=== PATIENT | female | born 1990 | race African-American/Black ===

== ENCOUNTER 2018-04-28 13:47 | Emergency (ER) | payer MEDICAID ==
[~2018-04-28] VITALS: Ht 160 cm; Wt 81.8 kg
[~2018-04-28 13:47] MED LIST: HYDROCODONE-APA1 TAB PO; IBUPROFEN600 MG PO; PRENATAL COMPLE1 TAB PO
[2018-04-28 14:23] VITALS: Ht 160 cm; Wt 81.8 kg
[2018-04-28 14:55] LABS: APPEARANCE HAZY (CLEAR); COLOR YELLOW (YELLOW)
[2018-04-28 14:56] LABS: BILIRUBIN NEGATIVE (NEGATIVE); GLUCOSE NEGATIVE (NEGATIVE); KETONE NEGATIVE (NEGATIVE); NITRITE POSITIVE (NEGATIVE); PROTEIN 2+ mg/dL (NEGATIVE); UROBILINOGEN NORMAL (NORMAL)
[2018-04-28 14:58] LABS: BACTERIA MODERATE /hpf (NONE SEEN); WHITE CELLS - URINE 25-50 /hpf (0-5)
[2018-04-28 15:13] LABS: BASOPHILS 0.4 % (0-2); EOSINOPHILS 1.8 % (0-7); HEMATOCRIT 34.7 % (36.0-48.0); HEMOGLOBIN 11.2 g/dL (12-16); IMMATURE GRANULOCYTES 0.3 % (0-5); LYMPHOCYTES 26.3 % (15-50); MCH 23.6 pg (26.0-34.0); MCHC 32.3 g/dL (31.0-37.0); MCV 73.2 fL (80.0-100.0); MEAN PLATELET VOLUME 9.1 fL (7.4-10.4); MONOCYTES 7.5 % (2-11); NEUTROPHILS 63.7 % (40-80); PLATELET COUNT 323 10x3/uL (130-400); RBC 4.74 10x6/uL (4.00-5.40); RDW 16.2 % (11.5-14.5); WBC 7.2 10x3/uL (4.8-10.8)
[2018-04-28 15:31] LABS: ALBUMIN 3.6 g/dL (3.4-5.0); ALKALINE PHOSPHATASE 72 U/L (46-116); ALT (SGPT) 15 U/L (10-68); AMYLASE - SERUM 33 U/L (25-115); BILIRUBIN - TOTAL 0.37 mg/dL (0.2-1.3); CALC OSMOLALITY 273 mosm/kg (275-300); CALCIUM 8.8 mg/dL (8.5-10.1); CARBON DIOXIDE 25.7 mmol/L (21.0-32.0); CHLORIDE - SERUM 104 mmol/L (98-107); CREATININE - SERUM 0.8 mg/dL (0.6-1.3); GLUCOSE 97 mg/dL (74-106); LIPASE 64 U/L (73-393); POTASSIUM - SERUM 3.6 mmol/L (3.5-5.1); PROTEIN - SERUM 7.6 g/dL (6.4-8.2); SODIUM 138 mmol/L (136-145); UREA NITROGEN 7 mg/dL (7-18); eGFR NON AFRICAN AMERICAN > 90 mL/min (90-120)
[2018-04-28] MEDS ORDERED: MACROBID100 MG PO (16:41)
[2018-04-28] MEDS ORDERED: PHENAZOPYRIDIN200 MG PO (16:41)
[2018-04-28 16:59] VITALS: BP 123/69
[2018-04-28 23:40] LABS: HCG SERUM NEGATIVE (NEGATIVE)
== END 2018-04-28 17:00 | disposition home or self-care (01) ==
LOC: D.ER 13:47
PROVIDERS: Family Medicine
DX: N39.0 Urinary tract infection, site not specified (principal)

== ENCOUNTER 2018-05-13 07:07 | Day surgery (SDC) | payer MEDICAID ==
[~2018-05-13] VITALS: Ht 160 cm; Wt 81.8 kg
--- NOTE | ~2018-05-13 | OP ---
PATIENT NAME: DEVIN AGUIRRE MEDICAL RECORD: [id number] :89 LOCATION: D.2229 ADMISSION DATE: SURGEON: JACOB BRIDGES MD DATE OF OPERATION: 05/13/2018 PREOPERATIVE DIAGNOSIS: Thyroid nodule. POSTOPERATIVE DIAGNOSIS: Thyroid nodule. PROCEDURE: Left thyroid lobectomy. SURGEON: Jacob Bridges MD ANESTHESIA: General orotracheal. BLOOD LOSS: 30 cc. SPECIMEN: Left thyroid lobe and nodules. DRAINS: A 15-Italian drain through a stab incision inferior to the wound. FROZEN SECTION DIAGNOSIS: Multinodular goiter. COMPLICATIONS: None. DISPOSITION: Recovery stable. 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 At three-quarters of the thyroid mass was substernal on the left side. Overall the specimen was over 15 cm x 5 cm at least. DESCRIPTION OF PROCEDURE: She was brought to the operating room and placed in supine position, sedated, and intubated by anesthesia. Eyes were taped. She was positioned, prepped and draped in the usual sterile fashion for thyroidectomy. Area of incision was injected with 1 cc of 1% lidocaine with 1000 epinephrine. Landmarks to the neck were palpated and horizontal skin incision was made. This was taken down through the fascia. Flaps were elevated superiorly, inferiorly and laterally. Four separate silk stick ties were placed. The fascia was divided in the midline. The strap muscles were and dissection down through the fascia on to the thyroid, which was obviously very large nodule over the isthmus. This extended past the midline to the right, just basically extensive nodularity down to the clavicle and sternum, so dissected all the strap muscles off to separate the thyroid. Fascia was divided, small vessels were cauterized with bipolar cautery. I then followed the left thyroid lobe inferiorly into the mediastinum, actually fairly deep below the sternum so that I could really reach, but was just slowly pulled up out of the superior mediastinum. Multiple nodules on the order of 4-5 cm in size were pulled up. Once that was done, the thyroid could be rotated medially and the fascia could be dissected off preserving parathyroid gland and avoiding traction on the recurrent laryngeal nerve that was followed superiorly. This was divided and rotated medially until the thyroid could be divided with cautery on the right side of the isthmus. Specimen was sent for path. Wound was carefully irrigated and inspected. There was really no bleeding at all. A drain was placed through a separate stab incision through the wound. There was OPERATIVE REPORT [id number] DEVIN AGUIRRE a very large cavity on the left side from the goiter being removed. The strap muscles were approximated in the midline with 3-0 Vicryl sutures interrupted. Then the platysma layer was closed with interrupted 4-0 Vicryl. Skin was closed with running subcuticular 6-0 Prolene. Steri-Strips and Mastisol were applied. A 2-0 Prolene was used for drain stitch. She was awakened, extubated, and transported to recovery in good condition. Good voice in recovery. There were no complications. TRANSINT:[id number] Voice Confirmation ID: [id number] DOCUMENT ID: [id number] JACOB BRIDGES MD at 1254 CC: [id number] DICTATION DATE: 05/13/18 1359 CLIENT ENGAGEMENT MANAGER: 05/13/18 1418 REG [facility] [address] [place] [address]
--- NOTE | ~2018-05-13 | HP ---
PATIENT: DEVIN AGUIRRE MEDICAL RECORD: [id number] ACCOUNT: [id number] LOCATION:D.MS [id number] : [birth year] ADMISSION DATE: 05/13/18 HISTORY AND PHYSICAL EXAMINATION HISTORY OF PRESENT ILLNESS: Devin is 28 years old. She has had a thyroid nodule, has been followed, but enlarging and symptomatic. She is being admitted for left thyroid lobectomy, possible total thyroidectomy. PAST MEDICAL HISTORY: Otherwise negative. PAST SURGICAL HISTORY: C-sections, LEEP. CURRENT MEDICATIONS: None. ALLERGIES: No known drug allergies. PHYSICAL EXAMINATION: GENERAL: She is healthy-appearing. FACE: Normal, symmetric, no lesions. EYES: Sclerae and conjunctivae are normal. EARS: Canals and TMs are normal. NOSE: No mass, polyps or drainage. ORAL CAVITY AND OROPHARYNX: Tongue protrudes in the midline. NECK: She has a 4-5 cm mass in the anterior thyroid just left of midline, obviously raises when she swallows and slightly tender. CHEST: Clear. CARDIOVASCULAR: Regular rate and rhythm, no murmur. EXTREMITIES: Normal. IMPRESSION: Large left thyroid nodule enlarging, euthyroid. PLAN: Left thyroid lobectomy with possible total depending on frozen section and intraoperative findings. TRANSINT:[id number] Voice Confirmation ID: [id number] DOCUMENT ID: [id number] CARLOS ORNELAS MD at 1254 CC: [id number] DICTATION DATE: 05/09/18 1347 TOOL REPAIRER BENCH: 05/09/18 1354 REG [facility] [address] [place] [address]
[~2018-05-13 07:07] MED LIST changes: +MACROBID100 MG PO; +PHENAZOPYRIDIN200 MG PO
[2018-05-13 08:27] LABS: HEMOGLOBIN 10.5 g/dL (12-16); MCH 23.4 pg (26.0-34.0); MCHC 31.8 g/dL (31.0-37.0); MCV 73.5 fL (80.0-100.0); MEAN PLATELET VOLUME 9.8 fL (7.4-10.4); RBC 4.49 10x6/uL (4.00-5.40); RDW 16.3 % (11.5-14.5); WBC 8.9 10x3/uL (4.8-10.8)
[2018-05-13 08:30] VITALS: BP 129/83; BMI 31.9
[2018-05-13 14:11] VITALS: BP 114/72
[2018-05-13 21:16] VITALS: BP 117/69
[2018-05-14 04:27] VITALS: BP 111/55
[2018-05-14 09:30] VITALS: Ht 160 cm; Wt 81.8 kg
[2018-05-14] MEDS ORDERED: ZOFRAN4 MG PO (13:33)
== END 2018-05-14 14:49 | disposition home or self-care (01) ==
LOC: D.OPS 07:07 → D.PAN 08:45 → D.MS 13:37 → D.OPS 05-14 14:49
PROVIDERS: Anesthesiology
DX: E04.2 Nontoxic multinodular goiter (principal); Z01.812 Encounter for preprocedural laboratory examination